=== PATIENT | female | born 1970 | race Caucasian/White ===

== ENCOUNTER 2017-09-12 11:11 | Emergency (ER) | payer BC ==
[~2017-09-12] VITALS: Ht 160 cm; Wt 74.8 kg
[2017-09-12 11:21] VITALS: BP_SYST 119
--- NOTE | 2017-09-12 11:25 | NUR ---
Pt placed to ER waiting room in stable condition.
--- NOTE | 2017-09-12 12:58 | NUR ---
Patient to ER chair 2 to for evaluation. Side rails up. Report given to Raimundo MITCHELL.
--- NOTE | 2017-09-12 13:00 | NUR ---
Pt ambulated into ED c/o cough, body aches, and congestions x 5 weeks. Pt reports taking ABX and steroid injections with no relief of symptoms. Pt reports having 2 vomiting episodes today, productive cough, ans SOB. No other injuries/complaints per pt/noted. Will continue to monitor.
--- NOTE | 2017-09-12 13:19 | NUR ---
JANELLE KHAN at bedside examining patient.
[2017-09-12] MEDS ORDERED: ONDANSETRON 4 MG ODT TAB PO ONE (13:30)
[2017-09-12] MEDS ORDERED: ALBUTEROL SULFATE 0.083% 2.5 MG/3 ML VIAL.NEB INH ONE (13:30)
--- NOTE | 2017-09-12 14:00 | NUR ---
Pt ambulated to radiology in stable condition.
--- NOTE | 2017-09-12 14:18 | NUR ---
Pt returned from radiology in stable condition.
--- NOTE | 2017-09-12 14:21 | NUR ---
Medication administered. Pt tolerated well. No adverse reactions noted.
--- NOTE | 2017-09-12 14:52 | NUR ---
JANELLE KHAN at bedside updating patient.
--- NOTE | 2017-09-12 14:59 | NUR ---
Patient given written and verbal discharge instructions and verbalizes understanding. JANELLE KHAN discussed with patient the results and treatment provided. Patient in stable condition. ID arm band removed. Rx of Samy Ny Prometh with Codeine given. Patient educated on pain management and to follow up with PMD. Pain Scale 0. Opportunity for questions provided and answered.
[2017-09-12 15:01] VITALS: BP_SYST 121
== END 2017-09-12 15:01 | disposition home or self-care (01) ==
LOC: SED 11:11
DX: J40 Bronchitis, not specified as acute or chronic (principal)
CPT/HCPCS: 36415; 71046; 86710; 99285; Q0162